=== PATIENT | male | born 1955 | race Caucasian/White ===

== ENCOUNTER 2016-09-19 05:19 | Emergency (ER) | payer MEDICARE ==
[~2016-09-19] VITALS: Ht 175.3 cm; Wt 113.4 kg
[~2016-09-19 05:19] MED LIST: ANALPRAM HC TP; ANTIVERT GENERI25 MG PO; ASPIRIN CHILDRE81 M1 PO; BACTRIM DS 8001 TA1 PO; CARVEDILOL 25MG25 MG PO; CIPRO 500MG TA500 MG PO; COLCHICINE0.6 MG PO; DARVOCET-N6 EACH/PAK OR; FLAGYL250 MG PO; FLEXERIL10 MG PO; FLUOXETINE20 M2 PO; GLIPIZIDE XL2.5 MG PO; HYCODAN 5MG. TAB5 MG PO; HYDRALAZINE100 MG PO; HYDROCHLOROTHIA25 M1 PO; HYDROCODONE-APA1 TA1 PO; HYDROCODONE-APA1 TA2 PO; HYDROCODONE1 TABLET PO; IBU-8800 MG PO; IBU400 MG PO; KEFLEX 500MG.500 MG PO; LIPITOR10 MG PO; LISINOPRIL40 MG PO; LODINE200 MG PO; LORATADINE10 M1 PO; LORTAB 5/500 501 TAB PO; LORTAB 500 MG-71 TAB PO; LYRICA75 MG PO; MECLIZINE HYDRO25 M2 PO; MEDROL 4MG. DOSE4 MG PO; MELOXICAM7.5 MG PO; MOTRIN600 M1 PO; NAPROSYN 500MG500 MG PO; NORCO 325 MG-51 TAB PO; PERCOCET 325 MG1 TA3 PO; PERCOGESIC1 TAB PO; PREDNISONE 10MG10 MG PO; PREDNISONE 20MG20 MG PO; RANEXA500 M1 PO; ROPINIROLE HYDRO1 MG PO; TAMIFLU 75MG CA75 MG PO; TRAMADOL50 M1 PO; ULTRAM50 MG PO; VICODIN 5/500 T1 TAB PO; ZITHROMAX TRI-500 MG PO
--- NOTE | 2016-09-19 05:40 | Emergency Room Report ---
See Addendum History of Present Illness Time Seen by MD Rosa Presenting Problem in Triage Pt arrived:Walked Presenting Problem:PT STATES THAT HE HAS A HEMORRHOID "SWELLED AND MY KIDNEYS AIN'T WORKING" PT STATES THAT IT STARTED AT 1999 LAST PM. PT STATES HE STRAINED TO HAVE A BM AND AFTER THAT HIS HEMORRHOID SWELLED AND NOW HE IS UNABLE TO URINATE. 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 N Clinical Suspician of Infection? N Mental Status: 1 - Regular (Normal Baseline) Sepsis Risk:Low Sepsis Risk Have you (or family members/close friends) recently traveled outside the [place]? N If Yes, where/when: Have you had exposure to infectious disease within the past month? N TB? Other? Specify: Source patient, RN notes reviewed, old records Exam Limitations no limitations Comment pt usually has 3-4 x nocturia but now unable to urinate has been straining with possible hemmorroid but no otc cold meds - no prev similiar episodes Cardiac Chest Pain Chest pain indicative of cardiac No Timing/Duration this evening Severity moderate ALLERGIES Coded Allergies: desvenlafaxine (From PRISTIQ) (Mild, 09/19/16) Home Medications Active Scripts TRAMADOL HCL (Tramadol) 50 MG PO QID #120 TAB Ref 3 Prov: 03/20/16 Cyclobenzaprine Hcl (Flexeril) 10 MG PO BID #60 TAB Ref 2 Prov: 03/20/16 Reported Medications Hydralazine Hcl (Hydralazine) 100 MG PO BID Carvedilol (Carvedilol 25MG) 25 MG PO BID HYDROCHLOROTHIAZIDE (Hydrochlorothiazide) 25 MG PO DAILY Lisinopril (Lisinopril 40MG) 40 MG PO DAILY Glipizide (Glipizide Xl) 2.5 MG PO DAILY Aspirin 81 MG PO DAILY History Medical History General CAD? No Angina: Yes [place]: No Hypertension? Yes Hyperlipidemia? Yes CHF? Yes DVT? No PE? No COPD? Yes Asthma? No Anemia? No GERD? No Gastric ulcers? No GI Bleed? No Hernia? No Thyroid Problems? No Hypothyroidism? No CVA? No Seizures? Yes Diabetes? Yes Insulin Dependent: No Insulin Pump: No Home FSBS? No Renal Insuffiency? No End Stage Renal Disease? No UTI? No Stones? No BPH? No GB Disease: No Nephritic Syndrome? No Asplenia? No Hepatitis? No Sickle Cell Disease? No Arthritis? No Migraines? No Cataracts? No Glaucoma? No MRSA? No HIV? No TB? No Anxiety? No Depression? No Cancer? No More? No Immunization Hx DT/Tetanus > 10 Years Ago Flu REFUSES Pneumonia REFUSES Surgical Hx Previous Surgery?Y ANGIOGRAPHY Back Hemorrhoid PACEMAKER INSERTED HEART CATH 02/20 Appendix HEART CATH 06/2010 PACEMAKER 12/2010 FUSION LOWER BACK Family History Family Hx Diabetes Yes CAD Yes Hypertension Yes Hyperlipidemia Yes Cancer Yes TB Yes Social History Smoking Hx Smoker: Current Every Day Smoker Tobacco: Yes Type Cigarettes Packs/day < 1 Pack Are you/the child exposed to second-hand smoke: Yes Alcohol Alcohol: No Drugs none Review of Systems All Other Systems Reviewed and Negative Constitutional denies fever Eyes denies drainage ENT denies: ear pain, epistaxis, throat pain. Respiratory denies cough, denies shortness of breath, denies wheezing Cardiovascular denies chest pain, denies syncope Gastrointestinal denies abdominal pain, denies diarrhea, denies vomiting Genitourinary see HPI, hesitancy. denies: scrotal/testicular pain. Musculoskeletal denies back pain, denies joint pain, denies neck pain Skin denies rash Psychiatric/Neurological denies headache, denies seizure Physical Exam Vital Signs Vital Signs Date Time Temp Pulse Resp B/P Pulse O2 O2 Flow FiO2 Ox Delivery Rate 09/19 0527 97.8 83 18 184/113 98 General Appearance no apparent distress Eye Exam - bilateral eye PERRL, bilateral eye EOMI Ear, Nose, Throat normal ENT inspection Neck supple Respiratory Status No: respiratory distress. Cardiovascular regular rate/rhythm, systolic murmur Peripheral Pulses Pulses normal Yes Gastrointestinal soft, no organomegaly, no pulsatile mass Extremities normal inspection Strength 4 Upper Ext (L), 4 Upper Ext (R), 4 Lower Ext (L), 4 Lower Ext (R) Rectal stool noted Male Genitalia uncircumcised Neurologic alert, science technician II-XII nml as tested, no motor/sensory deficits Reflexes Reflexes normal Yes Mental status normal mood/affect Skin intact Medical Decision Making LABS/Meds/Orders Pt receiving controlled substance in ED? No Results/Orders Laboratory Tests 09/19/16 0545: Urine Color Pending, Urine Appearance Pending, Urine pH Pending, Ur Specific [place] Pending Orders Procedure Date/time Status URINARY CATHETER INSERT 09/19 545 Active URINALYSIS/COMPLETE 09/19 545 Active Procedures Cath/NG/IV/CPR/Add.Proc Physician assisted procedures Risks/benefits discussed with pt/guardian? Yes Physician performed Porter cath insert simple. Departure Departure Time of Disposition 06 Disposition DC Home or Self Care(routine) Clinical Impression Primary Impression: Acute urinary retention Secondary Impressions: Constipation Qualifiers: Constipation type: unspecified constipation type Qualified Code: K59.00 - Constipation, unspecified Condition STABLE Referrals Chuck Bragg MD Patient Instructions DI for Urinary Retention in Men Additional Instructions please call pcp today for follow up Discharge Counseling Counseled pt/family regarding diagnosis, test results, medications/RX, follow up needs ED Critical Care Critical Care No at 0612
[2016-09-19 06:08] LABS: URINE BILIRUBIN - DIPSTICK NEGATIVE (NEG); URINE BLOOD NEGATIVE (NEG)
[2016-09-19 06:15] LABS: STOOL OCCULT BLOOD NEGATIVE (NEG)
[2016-09-19 06:28] VITALS: BP 156/87
== END 2016-09-19 06:39 | disposition home or self-care (01) ==
LOC: ER 05:19
PROVIDERS: Emergency Medicine
DX: R33.9 Retention of urine, unspecified (principal); K59.00 Constipation, unspecified; I10 Essential (primary) hypertension; Z72.0 Tobacco use; E11.8 Type 2 diabetes mellitus with unspecified complications

== ENCOUNTER 2017-04-17 07:02 | Emergency (ER) | payer MEDICARE ==
[~2017-04-17] VITALS: Ht 175.3 cm; Wt 117.9 kg
[~2017-04-17 07:02] MED LIST changes: +GABAPENTIN300 M1 PO
[2017-04-17] MEDS ORDERED: MEDROL 4MG. DOSE4 MG PO (08:27)
[2017-04-17] MEDS ORDERED: NAPROXEN SODIU500 MG PO (08:27)
--- NOTE | 2017-04-17 08:37 | Emergency Room Report ---
History of Present Illness Time Seen by 0818 Presenting Problem in Triage Pt arrived:Walked Presenting Problem:RIGHT HAND AND WRIST PAIN. STATES HE HAS CARPAL TUNNEL AND STARTED HURTING YESTERDAY. Onset of symptoms date/time:04/16/1710/02/899 or onset unknown for: Treatment Prior to Arrival: WEARING SPLINT HE BOUGHT, NAPROXEN, ADVIL, TRAMADOL, NEURONTIN, WITH NO RELIEF. LEAD PHP DEVELOPER Provided by:SELF Sepsis Risk Assessment: Temp: 98.0 B/P: 108/70 MAP: 82 Pulse: 77 Resp: 20 Recent fever? N Clinical Suspician of Infection? N Mental Status: 1 - Regular (Normal Baseline) Sepsis Risk:Low Sepsis Risk Have you (or family members/close friends) recently traveled outside the [place]? N If Yes, where/when: Have you had exposure to infectious disease within the past month? N TB? Other? Specify: RHD, mechanic welder truck driver, hx CTS, reports increased pain and swelling to the right wrist over the past few days. Feels unable to hold the wheel while driving. No numbness. Has hx gout to right great toe, with recent steroids, last dose was last week, for exacerbation of gout. No other joint pain today. No rashes. No fever. Is diabetic but reports FSBS has been stable during recent steroid therapy. ALLERGIES Coded Allergies: desvenlafaxine (From PRISTIQ) (Mild, 09/19/16) Home Medications Active Scripts TRAMADOL HCL (Tramadol) 50 MG PO QID #120 TAB Ref 3 Prov: 03/20/16 Reported Medications Hydralazine Hcl (Hydralazine) 100 MG PO BID Carvedilol (Carvedilol 25MG) 25 MG PO BID HYDROCHLOROTHIAZIDE (Hydrochlorothiazide) 25 MG PO DAILY Lisinopril (Lisinopril 40MG) 40 MG PO DAILY Glipizide (Glipizide Xl) 2.5 MG PO DAILY Aspirin 81 MG PO DAILY Gabapentin 300 MG PO BID #90 History Medical History General CAD? No Angina: Yes [place]: No Hypertension? Yes Hyperlipidemia? Yes CHF? Yes DVT? No PE? No COPD? Yes Asthma? No Anemia? No GERD? No Gastric ulcers? No GI Bleed? No Hernia? No Thyroid Problems? No Hypothyroidism? No CVA? No Seizures? Yes Diabetes? Yes Insulin Dependent: No Insulin Pump: No Home FSBS? No Renal Insuffiency? No End Stage Renal Disease? No UTI? No Stones? No BPH? No GB Disease: No Nephritic Syndrome? No Asplenia? No Hepatitis? No Sickle Cell Disease? No Arthritis? No Migraines? No Cataracts? No Glaucoma? No MRSA? No HIV? No TB? No Anxiety? No Depression? No Cancer? No More? No Immunization Hx DT/Tetanus > 10 Years Ago Flu REFUSES Pneumonia REFUSES Surgical Hx Previous Surgery?Y ANGIOGRAPHY Back Hemorrhoid PACEMAKER INSERTED HEART CATH 02/20 Appendix HEART CATH 06/2010 PACEMAKER 12/2010 FUSION LOWER BACK Family History Family Hx Diabetes Yes CAD Yes Hypertension Yes Hyperlipidemia Yes Cancer Yes TB Yes Social History Smoking Hx Smoker: Current Every Day Smoker Tobacco: Yes Type Cigarettes Packs/day < 1 Pack Alcohol Alcohol: Yes Review of Systems All Other Systems Reviewed and Negative Musculoskeletal see HPI Physical Exam Vital Signs Vital Signs Date Time Temp Pulse Resp B/P Pulse O2 O2 Flow FiO2 Ox Delivery Rate 04/17 807 77 20 108/70 97 04/17 705 98.0 76 20 110/69 97 General Appearance normal appearance, WD/WN, no apparent distress Eye Exam - bilateral eye normal exam, bilateral eye PERRL, bilateral eye EOMI Neck full range of motion Respiratory Status No: respiratory distress. Cardiovascular normal peripheral pulses Extremities Positive Tinel's, negative Phalen's, wrist on right; somewhat edematous volar wrist joint w/o any erythema. No streaks. FROM, fully sensate. Brisk CR and full radial pulse on right. Well perfused. Neurologic alert, normal exam, no motor/sensory deficits, oriented x 3 Medical Decision Making LABS/Meds/Orders Pt receiving controlled substance in ED? No Results/Orders Current Medication Orders Sig/Adis Start time Last Medication Dose Route Stop Time Status Admin Naproxen 500 MG ONCE ONE 04/17 830 AC PO 04/17 831 Orders Procedure Date/time Status STABILIZE JOINT 04/17 820 Active Departure Departure Time of Disposition 824 Disposition DC Home or Self Care(routine) Clinical Impression Primary Impression: CTS (carpal tunnel syndrome) Qualifiers: Laterality: right Qualified Code: G56.01 - Carpal tunnel syndrome, right upper limb Condition STABLE Referrals Margie BECERRA,Vernon Azul (Family) Patient Instructions Carpal Tunnel Syndrome Additional Instructions Splint for comfort; Rx Naproxen; Rx Medrol dosepak; one handed working until cleared by Dr. Hanson. Discharge Counseling Counseled pt/family regarding diagnosis, medications/RX, home care, follow up needs Prescriptions Current Visit Scripts NAPROXEN (NAPROXEN 500MG TAB) 500 MG PO BIDP PRN pain #20 TAB Methylprednisolone (Medrol Dose Filippo) 4 MG PO UD #1 FILIPPO TAKE DIRECTED ON PACKAGING ED Critical Care Critical Care No at 0837
[2017-04-17 08:45] VITALS: BP 117/78
--- OUTSIDE RECORDS SUMMARY | 2017-04-19 19:29 | External Medical Summary Rpt ---
Demographics Preferred Language Urdu Marital Status Unknown Baptist Affiliation Unknown Race Unknown Ethnic Group Unknown Author Author KULDEEP Address Unknown Phone Immunization Unable to retrieve immunization data due to connection failure with Immunization Registry. Please try again later.
--- OUTSIDE RECORDS SUMMARY | 2017-04-19 19:29 | External Medical Summary Rpt ---
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 Name Role Phone Rah Bueno MD, Unavailable Unavailable Rah Hanson MD, Unavailable Unavailable Mel Torres Unavailable Unavailable III , Chuck Torres III, MD Purpose Continuity of Care Document - 03-08-2013 through 2016 Problems Code Diagnosis DOS Provider Status 250.00 250.00 DIAB 09-12-2013 [facility], TYPE Hospital II OR UNSPEC TYPE, NOT UNCNTRLD 401.9 401.9 09-12-2013 [place] HYPERTENSIO [facility] N NOS Hospital 487.1 487.1 FLU W 09-12-2013 [place] RESP [facility] MANIFEST Hospital NEC 780.39 780.39 09-12-2013 [place] OTHER [facility] CONVULSIONS Hospital 274.00 274.00 05-09-2013 [place] GOUTY [facility] ARTHROPATHY Hospital , UNSPECIFIED 305.1 305.1 05-09-2013 [place] TOBACCO USE [facility] DISORDER [facility] 780.4 780.4 04-30-2013 [place] DIZZINESS, [facility] VERTIGO V45.01 V45.01 04-30-2013 [place] CARDIAC [facility] PACEMAKER Hospital IN SITU 274.01 274.01 03-19-2013 [place] [facility]9 791.9 ABN 03-19-2013 [place] URINE [facility] FINDINGS Hospital NEC 272.4 272.4 03-08-2013 [place] HYPERLIPIDE [facility] VIKTORIA NEC/NOS Hospital 945.24 945.24 2ND 03-08-2013 [place] DEG BURN [facility] LOWER LEG [facility] 948.00 948.00 [facility] NOS E928.8 E928.8 03-08-2013 [place] ACCIDENT [facility] V14.8 V14.8 03-08-2013 [place] HX-DRUG [facility] ALLERGY [facility] V58.69 V58.69 OTH 03-08-2013 [place] MED,LT,ALYSSA [facility] ENT [facility] Allergies, Adverse Reactions, Alerts Type Drug Allergy Adverse Reaction to Substance Substance Reaction Severity Desvenlafaxine Unknown Mild Medications Na ND Rx Da Fi Fi Am Da Di Ph RX Ph St me C No te ll ll ou ys ag ar # ys at rm s nt no ma ic us Or Da si cy ia de te s n re d SD 00 07 0 No ED 05 -0 NI 40 4- Lo SO 01 20 ng NE 82 13 er 0 20 Ac ti MG ve TA BL ET SI 61 06 0 No LV 57 -2 AD 00 3- Lo EN 13 20 ng E 14 13 er 1% 0 Ac CR ti EA ve M Vital Signs 09-12-2013 18:20 Name Value Interpretat Reference Comment ion Range BP 57 mm[Hg] Diastolic BP Systolic 110 mm[Hg] Heart 77 /min Rate/Pulse O2% 92 % Respiratory 20 /min Rate 09-12-2013 18:04 Name Value Interpretat Reference Comment ion Range BP 57 mm[Hg] Diastolic BP Systolic 110 mm[Hg] Heart 84 /min Rate/Pulse O2% 96 % Respiratory 20 /min Rate 05-09-2013 17:16 Name Value Interpretat Reference Comment ion Range BP 73 mm[Hg] Diastolic BP Systolic 102 mm[Hg] Heart 84 /min Rate/Pulse O2% 97 % Respiratory 20 /min Rate 04-30-2013 21:32 Name Value Interpretat Reference Comment ion Range BP 53 mm[Hg] Diastolic BP Systolic 125 mm[Hg] Heart 66 /min Rate/Pulse O2% 96 % Respiratory 20 /min Rate 04-30-2013 20:54 Name Value Interpretat Reference Comment ion Range O2% 97 % Respiratory 20 /min Rate 04-30-2013 20:38 Name Value Interpretat Reference Comment ion Range BP 88 mm[Hg] Diastolic BP Systolic 153 mm[Hg] Heart 69 /min Rate/Pulse 03-19-2013 19:50 Name Value Interpretat Reference Comment ion Range Body 98.1 [degF] Temperature BP 72 mm[Hg] Diastolic BP Systolic 126 mm[Hg] Heart 68 /min Rate/Pulse O2% 96 % Respiratory 17 /min Rate 03-19-2013 19:24 Name Value Interpretat Reference Comment ion Range BP 78 mm[Hg] Diastolic BP Systolic 134 mm[Hg] Heart 68 /min Rate/Pulse O2% 95 % Respiratory 18 /min Rate 03-08-2013 14:28 Name Value Interpretat Reference Comment ion Range Body 98.4 [degF] Temperature BP 84 mm[Hg] Diastolic BP Systolic 136 mm[Hg] Heart 64 /min Rate/Pulse O2% 96 % Respiratory 20 /min Rate 03-08-2013 13:42 Name Value Interpretat Reference Comment ion Range BP 81 mm[Hg] Diastolic BP Systolic 128 mm[Hg] Heart 67 /min Rate/Pulse O2% 100 % Respiratory 20 /min Rate Results Labs Lab Lab Date Result Refere Interp Status Commen Order Detail nces retati t Range on Drugs identified in Urine by Screen method (02-18-2017 15:04) Ampheta NEGATIV <1000 complet mine 017 E ed [Presen 15:04 ce] in Urine by Screen method 11-Hydr NEGATIV <50 complet oxy 017 E ed delta-9 15:04 tetrahy drocann abinol [Presen ce] in Unspeci fied specime n STREP SCREEN (RAPID) (09-12-2013 17:30) STREP NEGATIV complet SCREEN 013 E ed (RAPID) 17:30 COMPREHENSIVE METABOLIC PANEL (04-30-2013 20:45) Glucose 145 74-106 complet 013 mg/dL ed Bld-mCn 20:45 c BUN 36 7-18 complet Bld-mCn 013 mg/dL ed c 20:45 Creat 1.6 0.8-1.3 complet SerPl-m 013 mg/dL ed Cnc 20:45 GFR 45 Greater complet (ESTIMA 013 ML/MIN than ed LIVAN) 20:45 60 Sodium 04-30- 140 136-145 complet SerPl-s 013 mmoL/L ed Cnc 20:45 Potassi 3.5 3.5-5.1 complet um 013 mmoL/L ed SerPl-s 20:45 Cnc Chlorid 104 98-107 complet e 013 mmoL/L ed SerPl-s 20:45 Cnc CO2 08-15-2 26 21.0-32 complet SerPl-s 013 mmoL/L .0 ed Cnc 20:45 Calcium 08-15-2 8.7 8.5-10. complet 013 mg/dL 1 ed SerPl-m 20:45 Cnc Prot 08-15-2 7.7 6.4-8.2 complet SerPl-m 013 gm/dL ed Cnc 20:45 Albumin 08-15-2 3.7 3.4-5.0 complet 013 gm/dL ed SerPl-m 20:45 Cnc Globuli 08-15-2 4.0 1.3-3.2 complet n 013 gm/dL ed Ser-mCn 20:45 c Albumin 08-15-2 0.9 UNK 1.1-1.8 complet /Glob 013 ed SerPl-m 20:45 Rto Bilirub 08-15-2 0.3 0.2-1.0 complet 013 mg/dL ed SerPl-m 20:45 Cnc AST 08-15-2 14 U/L 15-37 complet SerPl-c 013 ed Cnc 20:45 ALT 08-15-2 39 U/L 30-65 complet SerPl-c 013 ed Cnc 20:45 ALP 08-15-2 113 U/L 50-136 complet SerPl-c 013 ed Cnc 20:45 CBC with AUTO DIFF (04-30-2013 20:45) WBC # 08-15-2 9.1 4.8-10. complet Bld 013 K/MM3 8 ed Auto 20:45 RBC # 08-15-2 4.88 4.6-6.2 complet Bld 013 M/mm3 ed Auto 20:45 Hgb 08-15-2 15.1 14.1-18 complet Bld-mCn 013 g/dL .0 ed c 20:45 Hct Fr 08-15-2 44.6 % 42.0-52 complet Bld 013 .0 ed 20:45 MCV RBC 08-15-2 91.4 fl 82.2-97 complet 013 .8 ed 20:45 MCH RBC 08-15-2 30.9 pg 27-31.2 complet Qn 013 ed Auto 20:45 MEAN 08-15-2 33.8 31.8-35 complet CORPUSC 013 g/dl .4 ed ULAR 20:45 HGB CONC RDW RBC 08-15-2 14.0 % 11.5-17 complet Auto 013 .5 ed 20:45 Platele 08-15-2 245 142-424 complet t Bld 013 K/mm3 ed Ql 20:45 Manual MEAN 08-15-2 7.5 fl 7.4-10. complet PLATELE 013 4 ed T 20:45 VOLUME Granulo 08-15-2 58.8 % 37.0-80 complet cytes 013 .0 ed Fr Bld 20:45 Auto LYMPH % 08-15-2 33.9 % 10-50 complet 013 ed 20:45 Monocyt 08-15-2 5.4 % 1.7-9.3 complet es Fr 013 ed Bld 20:45 Auto Eosinop 08-15-2 1.4 % 0.1-12. complet hil Fr 013 0 ed Bld 20:45 Auto Basophi 08-15-2 0.6 % 0.1-2.0 complet ls Fr 013 ed Bld 20:45 Auto Granulo 08-15-2 5.3 1.3-8.0 complet cytes # 013 K/mm3 ed Bld 20:45 Auto Lymphoc 08-15-2 3.1 0.7-4.5 complet ytes Fr 013 K/mm3 ed Bld 20:45 Auto Monocyt 08-15-2 0.5 0.1-1.0 complet es # 013 K/mm3 ed Bld 20:45 Auto Eosinop 08-15-2 0.1 0.0-0.4 complet hil # 013 K/mm3 ed Bld 20:45 Auto Basophi 08-15-2 0.1 0-0.2 complet ls # 013 K/MM3 ed Bld 20:45 Auto COMPREHENSIVE METABOLIC PANEL (03-19-2013 19:25) Glucose 04-2 93 74-106 complet 013 mg/dL ed Bld-mCn 19:25 c BUN 04-2 33 7-18 complet Bld-mCn 013 mg/dL ed c 19:25 Creat 03-19-2 1.5 0.8-1.3 complet SerPl-m 013 mg/dL ed Cnc 19:25 ESTIMAT 03-19-2 85 50-200 complet ED 013 ML/MIN ed CREATIN 19:25 INE CLEARAN CE GFR 03-19-2 48 Greater complet (ESTIMA 013 ML/MIN than ed LIVAN) 19:25 60 Sodium 0704-2 140 136-145 complet SerPl-s 013 mmoL/L ed Cnc 19:25 Potassi 07-04-2 4.1 3.5-5.1 complet um 013 mmoL/L ed SerPl-s 19:25 Cnc Chlorid 04-2 102 98-107 complet e 013 mmoL/L ed SerPl-s 19:25 Cnc CO2 04-2 28 21.0-32 complet SerPl-s 013 mmoL/L .0 ed Cnc 19:25 Calcium 07-04-2 9.6 8.5-10. complet 013 mg/dL 1 ed SerPl-m 19:25 Cnc Prot 04-2 8.2 6.4-8.2 complet SerPl-m 013 gm/dL ed Cnc 19:25 Albumin 04-2 4.1 3.4-5.0 complet 013 gm/dL ed SerPl-m 19:25 Cnc Globuli 04-2 4.1 1.3-3.2 complet n 013 gm/dL ed Ser-mCn 19:25 c Albumin 04-2 1.0 UNK 1.1-1.8 complet /Glob 013 ed SerPl-m 19:25 Rto Bilirub 04-2 0.4 0.2-1.0 complet 013 mg/dL ed SerPl-m 19:25 Cnc AST 04-2 20 U/L 15-37 complet SerPl-c 013 ed Cnc 19:25 ALT 07-04-2 45 U/L 30-65 complet SerPl-c 013 ed Cnc 19:25 ALP 07-04-2 99 U/L 50-136 complet SerPl-c 013 ed Cnc 19:25 URIC ACID (03-19-2013 19:25) URIC 07-04-2 10.4 2.6-7.2 complet ACID 013 mg/dL ed 19:25 CBC with AUTO DIFF (03-19-2013 19:25) WBC # 07-04-2 8.5 4.8-10. complet Bld 013 K/MM3 8 ed Auto 19:25 RBC # 07-04-2 5.01 4.6-6.2 complet Bld 013 M/mm3 ed Auto 19:25 Hgb 07-04-2 15.4 14.1-18 complet Bld-mCn 013 g/dL .0 ed c 19:25 Hct Fr 07-04-2 46.1 % 42.0-52 complet Bld 013 .0 ed 19:25 MCV RBC 07-04-2 91.9 fl 82.2-97 complet 013 .8 ed 19:25 MCH RBC 07-04-2 30.6 pg 27-31.2 complet Qn 013 ed Auto 19:25 MEAN 07-04-2 33.3 31.8-35 complet CORPUSC 013 g/dl .4 ed ULAR 19:25 HGB CONC RDW RBC 07-04-2 14.0 % 11.5-17 complet Auto 013 .5 ed 19:25 Platele 07-04-2 266 142-424 complet t Bld 013 K/mm3 ed Ql 19:25 Manual MEAN 07-04-2 7.3 fl 7.4-10. complet PLATELE 013 4 ed T 19:25 VOLUME Granulo 07-04-2 59.4 % 37.0-80 complet cytes 013 .0 ed Fr Bld 19:25 Auto LYMPH % 07-04-2 32.4 % 10-50 complet 013 ed 19:25 Monocyt 07-04-2 4.8 % 1.7-9.3 complet es Fr 013 ed Bld 19:25 Auto Eosinop 07-04-2 2.7 % 0.1-12. complet hil Fr 013 0 ed Bld 19:25 Auto Basophi 07-04-2 0.7 % 0.1-2.0 complet ls Fr 013 ed Bld 19:25 Auto Granulo 07-04-2 5.1 1.3-8.0 complet cytes # 013 K/mm3 ed Bld 19:25 Auto Lymphoc 07-04-2 2.8 0.7-4.5 complet ytes Fr 013 K/mm3 ed Bld 19:25 Auto Monocyt 07-04-2 0.4 0.1-1.0 complet es # 013 K/mm3 ed Bld 19:25 Auto Eosinop 07-04-2 0.2 0.0-0.4 complet hil # 013 K/mm3 ed Bld 19:25 Auto Basophi 07-04-2 0.1 0-0.2 complet ls # 013 K/MM3 ed Bld 19:25 Auto ESR Bld Qn 15M (03-19-2013 19:25) ESR Bld 23 0-20 complet Qn 15M 013 mm/hr ed 19:25 Encounters Encounter Start End Date Code Location Performer Type Date Emergency GABRIELA Hanson MD (ER) 3 17:40 3 18:21 [facility] Emergency GABRIELA Bueno MD (ER) 3 17:01 3 17:17 [facility] Emergency GABRIELA Hanson MD (ER) 3 20:11 3 21:32 [facility] Emergency GABRIELA Hanson MD (ER) 3 18:27 3 19:51 [facility] Emergency GABRIELA Torres (ER) 3 13:27 3 14:37 [facility] Chuck Lassiter
--- OUTSIDE RECORDS SUMMARY | 2017-04-19 19:29 | External Medical Summary Rpt ---
Author Author , KULDEEP Acosta KULDEEP Address Unknown Phone [email or web address] Care Team Providers Care Drill Operator Name Role Phone Rah Bueno MD, Unavailable Unavailable Rah Hanson MD, Unavailable Unavailable Mel Torres Unavailable Unavailable III , Chuck Torres III, MD Purpose Continuity of Care Document - 03-08-2013 through 2016 Problems Code Diagnosis DOS Provider Status 250.00 250.00 DIAB 09-12-2013 [facility], TYPE Hospital II OR UNSPEC TYPE, NOT UNCNTRLD 401.9 401.9 09-12-2013 [place] HYPERTENSIO [facility] N NOS Hospital 487.1 487.1 FLU W 09-12-2013 [place] RESP [facility] MANIFEST Hospital NEC 780.39 780.39 09-12-2013 [place] OTHER [facility] CONVULSIONS Hospital 274.00 274.00 05-09-2013 [place] GOUTY [facility] ARTHROPATHY Hospital , UNSPECIFIED 305.1 305.1 05-09-2013 [place] TOBACCO USE [facility] DISORDER [facility] 780.4 780.4 04-30-2013 [place] DIZZINESS, [facility] VERTIGO V45.01 V45.01 04-30-2013 [place] CARDIAC [facility] PACEMAKER Hospital IN SITU 274.01 274.01 03-19-2013 [place] [facility].9 791.9 ABN 03-19-2013 [place] URINE [facility] FINDINGS Hospital NEC 272.4 272.4 03-08-2013 [place] HYPERLIPIDE [facility] VIKTORIA NEC/NOS Hospital 945.24 945.24 2ND 03-08-2013 [place] DEG BURN [facility] LOWER LEG [facility] 948.00 948.00 BDY 03-08[facility] NOS E928.8 E928.8 03-08-2013 [place] ACCIDENT [facility] V14.8 V14.8 03-08-2013 [place] HX-DRUG [facility] ALLERGY [facility] V58.69 V58.69 OTH 03-08-2013 [place] MED,LT,ALYSSA [facility] ENT [facility] Allergies, Adverse Reactions, Alerts Type Drug Allergy Adverse Reaction to Substance Substance Reaction Severity Desvenlafaxine Unknown Mild Medications Na ND Rx Da Fi Fi Am Da Di Ph RX Ph St me C No te ll ll ou ys ag ar # ys at rm s nt no ma ic us Or Da si cy ia de te s n re d NE 00 07 0 No ED 05 -0 [...] Hanson MD (ER) 3 17:40 3 18:21 [facility] Emergency GABRIELA Bueno MD (ER) 3 17:01 3 17:17 [facility] Emergency GABRIELA Hanson MD (ER) 3 20:11 3 21:32 [facility] Emergency GABRIELA Hanson MD (ER) 3 18:27 3 19:51 [facility] Emergency GABRIELA Torres (ER) 3 13:27 3 14:37 [facility] Chuck Lassiter
--- OUTSIDE RECORDS SUMMARY | 2017-04-19 19:29 | External Medical Summary Rpt ---
Demographics Preferred Language Ukrainian Marital Status Unknown Restorationism Affiliation Unknown Race Unknown Ethnic Group Unknown Author Author KULDEEP Address Unknown Phone Immunization Unable to retrieve immunization data due to connection failure with Immunization Registry. Please try again later.
== END 2017-04-17 08:44 | disposition home or self-care (01) ==
LOC: ER 07:02
PROC: 2W3CX1Z Immobilization of Right Lower Arm using Splint (ICD-10-PCS; principal; 2017-04-17)
DX: G56.01 Carpal tunnel syndrome, right upper limb (principal); I10 Essential (primary) hypertension; J44.9 Chronic obstructive pulmonary disease, unspecified; Z72.0 Tobacco use